=== PATIENT | female | born 1975 | race Asian ===

== ENCOUNTER 2016-05-14 13:55 | Outpatient (CLI) | payer OTHER | END 2016-05-14 13:56 | disposition home or self-care (01) | DX: Z13.9 Encounter for screening, unspecified (principal) ==

== ENCOUNTER 2023-06-05 09:23 | Outpatient (CLI) | payer OTHER ==
--- NOTE | 2023-06-06 11:33 | Mammography Report ---
BILATERAL DIGITAL SCREENING MAMMOGRAM 3D/2D: 06/05/2023 CLINICAL: Baseline exam. Routine screening. No prior exams were available for comparison. Both breasts are heterogeneously dense, which may obscure small masses (category c / 51-75% glandular tissue). There is an asymmetry in the right breast posterior depth superior region seen on the mediolateral ob lique view only. There also is an oval mass in the right breast posterior depth central to the nipple seen on the medi olateral oblique view only. There is possible architectural distortion in the left breast posterior depth superior region seen on the mediolateral oblique view only. No other significant masses or calcifications are seen in either breast. IMPRESSION: INCOMPLETE: NEEDS ADDITIONAL IMAGING EVALUATION The asymmetry in the right breast posterior depth superior region seen on the mediolateral oblique vi ew only is indeterminate. Additional views with possible ultrasound are recommended. The oval mass in the right breast posterior depth central to the nipple seen on the mediolateral obli que view only is indeterminate. Additional views with possible ultrasound are recommended. The possible architectural distortion in the left breast posterior depth superior region seen on the mediolateral oblique view only is indeterminate. Additional views with possible ultrasound are recom mended. Based on the Tyrer Cuzick model (a risk assessment model) the patient's lifetime risk is 10.6% and he r 10 year risk is 2.2%. According to the ACR, ACS, and NCCN guidelines, an annual breast MRI exam kev ng with mammogram is recommended if the patient's lifetime risk is 20% or greater. This exam was interpreted at Station ID: [id number]. NOTE: For mammograms, a report in lay terms will be sent to the patient. Approximately 15% of breast malignancies will not be visualized mammographically. In the management of a palpable breast mass, a negative mammogram must not discourage biopsy of a clinically suspicious lesion. Electronically Signed By: Eliel Rock M.D. lc/:06/05/2023 10:20:34 ACR BI-RADS Category 0: Incomplete 3340F PARENCHYMAL PATTERN: (D) - The breast(s) demonstrate(s) heterogeneously dense fibroglandular parenchy ma. BI-RADS CATEGORY: (0) - 0 Mammo and US [id number] Immediate follow-up LATERALITY: (B)
== END 2023-06-05 09:24 | disposition home or self-care (01) ==
LOC: DI.N 09:23
DX: Z12.31 Encounter for screening mammogram for malignant neoplasm of breast (principal); R92.8 Other abnormal and inconclusive findings on diagnostic imaging of breast; R92.333 Mammographic heterogeneous density, bilateral breasts

== ENCOUNTER 2023-07-01 11:13 | Outpatient (CLI) | payer OTHER ==
--- NOTE | 2023-07-02 09:38 | Ultrasound Report ---
LIMITED ULTRASOUND OF LEFT BREAST: 07/01/2023 CLINICAL: Patient returns today to evaluate asymmetries in bilateral breasts. Comparison is made to exams dated: 07/01/2023 mammogram and 06/05/2023 mammogram - [facility]. Real-time ultrasound of the left breast upper outer quadrant was performed. Don scale images of th e real-time examination were reviewed. No significant abnormalities were seen sonographically in the left breast. IMPRESSION: NEGATIVE There is no sonographic evidence of malignancy. There is no abnormality seen in the left breast to correspond with the mammography finding in the upp er outer quadrant which is consistent with normal fibroglandular tissue. This exam was interpreted at Station ID: [id number]. Electronically Signed By: Kev gordillo/mir:07/01/2023 15:40:35 Ultrasound BI-RADS: 1 Negative BI-RADS CATEGORY: (1) - 1 RECOMMENDATION: (ADDMAM) - Recommend additional mammographic views. no recall/no msg LATERALITY: (B)
--- NOTE | 2023-07-02 09:38 | Ultrasound Report ---
LIMITED ULTRASOUND OF RIGHT BREAST: 07/01/2023 CLINICAL: Patient returns today to evaluate asymmetries in bilateral breasts. Comparison is made to exams dated: 07/01/2023 ultrasound, 07/01/2023 mammogram, and 06/05/2023 mammogram - [facility]. Real-time ultrasound of the right breast 8-12 o'clock region was performed. Don scale images of the real-time examination were reviewed. No significant abnormalities were seen sonographically in the right breast. IMPRESSION: PROBABLY BENIGN There is no abnormality seen in the right breast to correspond with the mammography finding at 8 o'cl ock. This is considered probably benign. There is no abnormality seen in the right breast to correspond with the mammography finding in the up per outer quadrant which is consistent with normal fibroglandular tissue. A follow-up right diagnostic mammogram and possible ultrasound in 6 months is recommended to demonstr ate stability. This exam was interpreted at Station ID: [id number]. Electronically Signed By: Kev Castro M.D. ar/:07/01/2023 15:39:50 Ultrasound BI-RADS: 3 Probably benign BI-RADS CATEGORY: (3) - 3 Mammo and US [id number] 6 month follow-up LATERALITY: (R)
--- NOTE | 2023-07-02 09:38 | Mammography Report ---
BILATERAL DIGITAL DIAGNOSTIC MAMMOGRAM 3D/2D: 07/01/2023 CLINICAL: Patient returns today to evaluate asymmetries in bilateral breasts. Comparison is made to exam dated: 06/05/2023 mammogram - [facility]. Both breasts are heterogeneously dense, which may obscure small masses (category c / 51-75% glandular tissue). The asymmetry in the right breast posterior depth superior region seen on the mediolateral oblique vi ew only is no longer seen. There also is a 0.7 cm oval equal density mass with a circumscribed margin in the right breast at 8 o 'clock posterior depth. This is seen in additional views. The possible architectural distortion in the left breast posterior depth superior region seen on the mediolateral oblique view only is not reproduced and presumably represented superimposed breast tissu e. No other significant masses or calcifications are seen in either breast. IMPRESSION: INCOMPLETE: NEEDS ADDITIONAL IMAGING EVALUATION An ultrasound is recommended to confirm the no longer seen asymmetry in the right breast posterior de pth superior region seen on the mediolateral oblique view only. The 0.7 cm oval equal density mass in the right breast at 8 o'clock posterior depth resembles a cyst or a lymph node and is indeterminate. An ultrasound is recommended. An ultrasound is recommended to confirm the no longer seen architectural distortion in the left breas t posterior depth superior region seen on the mediolateral oblique view only. Based on the Tyrer Cuzick model (a risk assessment model) the patient's lifetime risk is 11.6% and he r 10 year risk is 2.5%. According to the ACR, ACS, and NCCN guidelines, an annual breast MRI exam kev ng with mammogram is recommended if the patient's lifetime risk is 20% or greater. This exam was interpreted at Station ID: [id number]. NOTE: For mammograms, a report in lay terms will be sent to the patient. Approximately 15% of breast malignancies will not be visualized mammographically. In the management of a palpable breast mass, a negative mammogram must not discourage biopsy of a clinically suspicious lesion. Electronically Signed By: Kev gordillo/mir:07/01/2023 15:37:20 ACR BI-RADS Category 0: Incomplete 3340F PARENCHYMAL PATTERN: (D) - The breast(s) demonstrate(s) heterogeneously dense fibroglandular [place]. BI-RADS CATEGORY: (0) - 0 Ultrasound [id number] Immediate follow-up LATERALITY: (B)
== END 2023-07-01 11:14 | disposition home or self-care (01) ==
LOC: DI 11:13
PROVIDERS: ATTEND Physician Assistant
DX: R92.8 Other abnormal and inconclusive findings on diagnostic imaging of breast (principal); R92.333 Mammographic heterogeneous density, bilateral breasts